=== PATIENT | male | born 2005 ===

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

== ENCOUNTER 2023-06-27 18:08 | Emergency (ER) | payer OTHER ==
[~2023-06-27] VITALS: Ht 165.1 cm; Wt 69.8 kg
[~2023-06-27 18:08] MED LIST changes: +ONDA4ODT MM; +TERB250 PO
[2023-06-27 18:14] VITALS: BP 153/79
== END 2023-06-27 18:47 | disposition home or self-care (01) ==
LOC: ER 18:08
DX: R04.0 Epistaxis (principal)
CPT/HCPCS: 99283